=== PATIENT | female | born 1960 | race African-American/Black ===

== ENCOUNTER 2017-11-02 00:32 | Inpatient (IN) | payer MEDICAID, SELFPAY ==
[~2017-11-02] VITALS: Ht 160 cm; Wt 120.7 kg
[2017-11-02] VITALS (7 sets, daily range): BP systolic 123–184; BP diastolic 70–87
[~2017-11-02 00:32] MED LIST: BABY ASPIRIN81 M1 ORAL; BENAZEPRIL HCL10 MG ORAL; IBUPROFEN600 MG ORAL; NORCO 5-325 TA1 EACH PO; PRILOSEC20 MG ORAL
--- NOTE | 2017-11-02 00:40 | Emergency Room Report ---
History of Present Illness General Chief Complaint: To Be Triaged Source: Patient Present Illness HPI This is a 57-year-old female with history hypertension diabetes. She presents with chief complaint of chest pain. Onset around 2 PM, 10 hours ago. Pain to her neck and going to her arm. Now the chest. Going to her back also. Pain is 7 out of 10. Nothing made it better. Nothing made it worse. Denies any trauma. No shortness of breath. No diaphoresis. No exertional component. Pain has been constant. Allergies: Coded Allergies: No Known Allergies (Unverified , 06/10/12) Patient History Past Medical History: see triage record, old chart reviewed, DM, HTN Past Surgical History: other Pertinent Family History: [place] Social History: Denies: smoking Now: No Immunizations: other Reviewed Nursing Documentation: PMH: Agreed; PSxH: Agreed Nursing Documentation-PMH Hx Hypertension: Yes Review of Systems Eye: Denies: eye pain, blurred vision ENT: Denies: ear pain, nose congestion, throat swelling Respiratory: Denies: cough, shortness of breath Cardiovascular: Reports: chest pain; Denies: palpitations Gastrointestinal: Denies: abdominal pain, diarrhea, nausea, vomiting Musculoskeletal: Denies: back pain, joint pain Skin: Denies: rash Neurological: Denies: headache, numbness Endocrine: Denies: increased thirst, increased urine Hematologic/Lymphatic: Denies: easy bruising All Other Systems: negative except mentioned in HPI Physical Exam Sp02 EP Interpretation: reviewed, normal General Appearance: well appearing, no apparent distress, alert, obese Head: normocephalic, atraumatic Eyes: bilateral eye PERRL, bilateral eye EOMI ENT: hearing grossly normal, normal pharynx Neck: full range of motion, supple, no meningismus Respiratory: chest non-tender, lungs clear, normal breath sounds Cardiovascular #1: regular rate, rhythm, no murmur Gastrointestinal: normal bowel sounds, non tender, no mass, no organomegaly, no bruit, non-distended Musculoskeletal: back normal, gait/station normal, normal range of motion Psychiatric: mood/affect normal Skin: warm/dry Medical Decision Making Diagnostic Impression: Primary Impression: ACS (acute coronary syndrome) Additional Impression: Hypertension Qualified Codes: I10 - Essential (primary) hypertension ER Course Patient presents with chest pain. She has multiple risk factor with her obesity , he get, family history, diabetes, and high blood pressure. Pain resolved with nitroglycerin. We will admit versus transfer based on insurance. No evidence of ST elevation AK. No evidence of PE, dissection, pneumonia to name a few. I contacted Dr. Morrow for admission. Lab Results Impression labs are normal EKG Diagnostic Results Rate: normal Rhythm: NSR ST Segments: no acute changes ASA given to the pt in ED: Yes Rhythm Strip Diag. Results Rhythm Strip Time: 01:27 EP Interpretation: yes Rate: 65 Rhythm: NSR, no PVC's, no ectopy Chest X-Ray Diagnostic Results Chest X-Ray Diagnostic Results : Chest X-Ray Ordered: Yes # of Views/Limited/Complete: 1 View Indication: Chest Pain EP Interpretation: Yes Interpretation: no consolidation, no effusion, no pneumothorax, no acute cardiopulmonary disease Impression: No acute disease Electronically Signed by: Tommy Shane MD Status: improved Disposition: ADMITTED INPATIENT Condition: Serious TOMMY SHANE M.D. Nov 02, 2017 00:40
[2017-11-02] MEDS ORDERED: Nitroglycerin Subl 0.4mg tab SL PRN ×2 (00:45→07:45)
[2017-11-02 01:13] LABS: BASOPHILS % (AUTO) 1.4 % (0.0-2.0); EOSINOPHILS % (AUTO) 2.8 % (0.0-3.0); HEMATOCRIT 41.3 % (37.0-47.0); HEMOGLOBIN 13.1 G/DL (12.0-16.0); LYMPHOCYTES % (AUTO) 40.7 % (20.0-45.0); MEAN CORPUSCULAR VOLUME 81 FL (80-99); MONOCYTES % (AUTO) 12.5 % (1.0-10.0); NEUTROPHILS % (AUTO) 42.6 % (45.0-75.0); PLATELET COUNT 298 K/UL (150-450); RED BLOOD COUNT 5.07 M/UL (4.20-5.40); WHITE BLOOD COUNT 6.5 K/UL (4.8-10.8)
[2017-11-02 01:21] LABS: ANION GAP 8 mmol/L (5-15); BLOOD UREA NITROGEN 20 mg/dL (7-18); CALCIUM 9.3 MG/DL (8.5-10.1); CARBON DIOXIDE 25 MMOL/L (21-32); CHLORIDE 106 MMOL/L (98-107); CREATININE 0.9 MG/DL (0.55-1.30); POTASSIUM 3.9 MMOL/L (3.5-5.1); SODIUM 139 MMOL/L (136-145)
[2017-11-02 01:36] LABS: ALANINE AMINOTRANSFERASE 26 U/L (12-78); ALBUMIN 3.4 G/DL (3.4-5.0); ALBUMIN/GLOBULIN RATIO 0.8 (1.0-2.7); ALKALINE PHOSPHATASE 117 U/L (46-116); ASPARTATE AMINO TRANSFERASE 17 U/L (15-37); BILIRUBIN,TOTAL 0.3 MG/DL (0.2-1.0); CKMB 1.2 NG/ML (0.0-3.6); CREATINE KINASE 153 U/L (26-308)
[2017-11-02] MEDS ORDERED: METFORMIN HCL500 M1 ORAL (01:47)
[2017-11-02] MEDS ORDERED: COZAAR50 MG ORAL (01:47)
--- NOTE | 2017-11-02 02:13 | Diagnostic Imaging Report ---
EXAM: XR Chest, 1 View CLINICAL HISTORY: CP TECHNIQUE: Frontal view of the chest. COMPARISON: 06/10/12 FINDINGS: Lungs: Low lung volumes accentuate pulmonary lung markings and cardiovascular silhouette. Slight overall increased lung markings and central vasculature which may reflect mild congestion. Lung bases obscured by underpenetrated technique No gross dense consolidation. Pleural space: No pneumothorax. Heart: Cardiovascular silhouette, likely mildly enlarged and accentuated by low lung volumes. Mediastinum: Unremarkable. Bones/joints: Unremarkable. IMPRESSION: Suspect mild vascular congestion. Low lung volumes limit evaluation. Mild cardiomegaly
[2017-11-02] MEDS: NovoLOG Insulin Flexpen SUBQ SCH ×4 (06:30→21:00)
[2017-11-02] MEDS: metFORMIN 500mg tab ORAL SCH ×2 (08:29→17:01)
[2017-11-02] MEDS: Aspirin Baby 81mg ORAL SCH (08:30)
[2017-11-02] MEDS: Losartan 50mg tab ORAL SCH (08:30)
[2017-11-02 09:37] LABS: ALANINE AMINOTRANSFERASE 25 U/L (12-78); ALBUMIN 3.3 G/DL (3.4-5.0); ALBUMIN/GLOBULIN RATIO 0.7 (1.0-2.7); ALKALINE PHOSPHATASE 105 U/L (46-116); ANION GAP 8 mmol/L (5-15); ASPARTATE AMINO TRANSFERASE 17 U/L (15-37); BILIRUBIN,TOTAL 0.4 MG/DL (0.2-1.0); BLOOD UREA NITROGEN 18 mg/dL (7-18); CALCIUM 9.2 MG/DL (8.5-10.1); CARBON DIOXIDE 28 MMOL/L (21-32); CHLORIDE 105 MMOL/L (98-107); CHOLESTEROL 196 MG/DL (< 200); CREATININE 0.9 MG/DL (0.55-1.30); HDL CHOLESTEROL 77 MG/DL (40-60); POTASSIUM 3.4 MMOL/L (3.5-5.1); SODIUM 140 MMOL/L (136-145); TRIGLYCERIDES 61 MG/DL (30-150)
[2017-11-02] MEDS ORDERED: Lexiscan 0.4mg/5ml syringe IV PRN (16:00)
--- NOTE | 2017-11-02 19:15 | History and Physical Report ---
DATE OF ADMISSION: 11/02/2017 REASON FOR ADMISSION: Chest pain with risk factors for premature coronary disease. HISTORY OF PRESENT ILLNESS: This is a 57-year-old female with multiple risk factors for premature coronary atherosclerosis. She presented to the emergency room with chest pressure beginning around 2 p.m., unprovoked, and radiating to her neck and arm as well as her back. The patient denies any similar symptoms. It occurred at rest. The pain has been nearly constant. The patient's coronary risk factors include diabetes, hypertension, obesity, and family history. PAST MEDICAL HISTORY: Hypertension, type 2 diabetes mellitus. FAMILY HISTORY: Notable for myocardial infarctions in her mother and father. SOCIAL HISTORY: Negative for smoking, alcohol, or substance abuse. MEDICATIONS: Reviewed and reconciled. REVIEW OF SYSTEMS: Otherwise unremarkable. PHYSICAL EXAMINATION: VITAL SIGNS: Blood pressure 137/87, pulse 78, respiratory rate 18, and afebrile. GENERAL: Moderately obese. HEENT: Conjunctivae pink. Oropharynx clear. NECK: Supple. No jugular venous distention. No bruits. LUNGS: Clear. CHEST: Chest wall without deformity or tenderness. CARDIAC: Regular rhythm and rate. Normal S1, S2 with no murmur. ABDOMEN: Soft and obese. EXTREMITIES: No edema. LABORATORY DATA: White count 6.5, hemoglobin 13.1. Sodium 139, potassium 3.9, bicarbonate 25, BUN 20, creatinine 0.9. Troponin is negative. IMPRESSION: 1. Acute coronary syndrome. 2. Hypertensive heart disease. 3. Type 2 diabetes mellitus. 4. Obesity. 5. Prerenal azotemia. PLAN: 1. Cardiac monitoring. 2. Antiplatelet therapy with aspirin. 3. Serial troponin levels. 4. DVT prophylaxis. 5. Continue baseline diabetic regimen. 6. Titrate antihypertensives. 7. Consider beta-blockade for persisting chest pain especially if troponins increase. 8. In view of risk factors and presentation with symptoms suggestive of angina, I would recommend a noninvasive assessment of coronary flow reserve prior to discharge. Zelalem Morrow M.D. FROILAN Cunningham JOB#: [id number] CC:
[2017-11-02] MEDS: Zolpidem 5mg tab ORAL PRN (22:01)
[2017-11-03] VITALS: BP 136/78
[2017-11-03 04:00] VITALS: BP 119/74
[2017-11-03] MEDS: NovoLOG Insulin Flexpen SUBQ SCH ×4 (06:07→21:00)
[2017-11-03 07:57] VITALS: BP 140/73
[2017-11-03] MEDS: metFORMIN 500mg tab ORAL SCH ×2 (08:08→17:34)
[2017-11-03] MEDS: Losartan 50mg tab ORAL SCH (08:08)
[2017-11-03] MEDS: Aspirin Baby 81mg ORAL SCH (08:08)
[2017-11-03 08:20] LABS: ANION GAP 7 mmol/L (5-15); BLOOD UREA NITROGEN 15 mg/dL (7-18); CARBON DIOXIDE 28 MMOL/L (21-32); CHLORIDE 107 MMOL/L (98-107); CREATININE 0.8 MG/DL (0.55-1.30); POTASSIUM 4.2 MMOL/L (3.5-5.1); SODIUM 142 MMOL/L (136-145)
[2017-11-03 12:00] VITALS: BP 150/77
--- NOTE | 2017-11-03 15:53 | Cardiology Report ---
APPROVED REPORT EKG Measurement Heart [id number] CT [id number] Normal sinus rhythm Normal ECG
[2017-11-03 16:00] VITALS: BP 123/74
[2017-11-03 20:00] VITALS: BP 142/90
[2017-11-03] MEDS: Zolpidem 5mg tab ORAL PRN (20:11)
--- NOTE | 2017-11-03 22:15 | Progress Note ---
DATE: 11/03/2017 INTERNAL MEDICINE PROGRESS NOTE SUBJECTIVE: The patient without genuine condition. No chest pain. No shortness of breath. OBJECTIVE: VITAL SIGNS: Blood pressure 123/74 to 150/77, heart rate 71, and respiratory rate 18. GENERAL: She is afebrile. Monitored rhythm, sinus. LUNGS: Clear. CARDIAC: Regular. No new murmur. ABDOMEN: Soft. EXTREMITIES: No edema. IMPRESSION: 1. Possible acute coronary syndrome. 2. Type 2 diabetes mellitus. 3. Hypertensive heart disease. 4. Obesity. PLAN: 1. Continue current regimen. 2. Cardiac monitoring. 3. Anti-platelet therapy and antihypertensives with glucose monitoring. 4. Awaiting noninvasive assessment of coronary flow reserve to risk stratify prior to discharge. Zelalem Morrow M.D. DRFabricio CASTILLO JOB#: [id number] CC:
[2017-11-04] VITALS: BP 131/67
[2017-11-04 04:00] VITALS: BP 120/62
[2017-11-04] MEDS: NovoLOG Insulin Flexpen SUBQ SCH ×3 (06:30→16:30)
[2017-11-04 08:00] VITALS: BP 147/75
[2017-11-04] MEDS: Losartan 50mg tab ORAL SCH (08:39)
[2017-11-04] MEDS: metFORMIN 500mg tab ORAL SCH (08:39)
[2017-11-04] MEDS: Aspirin Baby 81mg ORAL SCH (08:41)
--- NOTE | 2017-11-04 11:14 | Cardiology Report ---
APPROVED REPORT EXAM: Two-dimensional and M-mode echocardiogram with Doppler and color Doppler. INDICATION Chest Pain M-Mode DIMENSIONS IVSd1.2 (0.7-1.1cm)Left Atrium (MM)3.9 (1.6-4.0cm) LVDd4.5 (3.5-5.6cm)Aortic Root2.9 (2.0-3.7cm) PWd1.3 (0.7-1.1cm)Aortic Cusp Exc.1.7 (1.5-2.0cm) LVDs2.8 (2.5-4.0cm) PWs2.2 cm Technically difficult study due to poor acoustic windows. Study quality precludes accurate assessment of regional wall motion. Normal left ventricular chamber size, systolic function and wall motion. Left ventricular ejection fraction estimated to be 60 %. Mild left ventricular hypertrophy. Anterior Echo-free space, may be due to pericardial fat or effusion. All other cardiac chamber sizes are within normal limits. Focal aortic valve sclerosis with adequate cusp excursion. Mildly thickened mitral valve leaflets with normal excursion. Mild mitral annulus and aortic root calcification. Normal pulmonic valve structure. Normal tricuspid valve structure. IVC measures at 1.9 cm with physiological collapse. A color flow and spectral Doppler study was performed and revealed: No aortic insufficiency. Peak aortic valve gradient of 16 mmHg and a mean of 8 mmHg. Mild mitral regurgitation. Mitral inflow velocities indicates possible pseudo normalization pattern implying significant left ventricular diastolic dysfunction (Grade II). Trace tricuspid regurgitation. Tricuspid systolic velocities suggests peak right ventricular systolic pressure of 31 mmHg. Trace pulmonic regurgitation present.
[2017-11-04 12:00] VITALS: BP 123/78
[2017-11-04 16:00] VITALS: BP 142/72
--- NOTE | 2017-11-04 16:01 | Diagnostic Imaging Report ---
Technique: See cardiology report for details of LexiScan stress testing. During LexiScan infusion, IV administration 31.1 mCi 99 M technetium Myoview for stress portion. SPECT and planar images obtained. SPECT images gated to 8 phases of the cardiac cycle were also obtained, and reformatted into cine images for evaluation of ejection fraction. Resting images obtained using IV administration 10.5 mCi 99 M technetium Myoview. Comparison:none Findings: Baseline heart rate of 61 beats per minutes; end infusion heart rate 80 bpm. Baseline blood pressure of 134/78; end infusion blood pressure of 125/66. Infusion duration was [address]-T changes were documented. The clinical response to pharmacologic stress was nonischemic. The electrocardiographic response to pharmacologic stress was nonischemic. Perfusion images demonstrate some mild soft tissue/breast attenuation artifact. There is no definite focal fixed or reversible defect. Wall motion appears within normal limits. Ejection fraction estimated at 73 %. IMPRESSION: No fixed or reversible perfusion defects identified. Ejection fraction of approximately 73 %.
--- NOTE | 2017-11-05 15:32 | Discharge Summary ---
Discharge Summary Discharge Summary _ DATE OF ADMISSION: 11/02/2017 DATE OF DISCHARGE: 11/04/2017 REASON FOR ADMISSION: 57 years old female with past medical history significant for hypertension and diabetes, presented with chief complaint of chest pain. Chest pain described as radiating to neck and back. Pain reported as 7 out of 10 on a scale 1-10 . Onset about 10 hours ago. No shortness of breath . No trauma . No diaphoresis . No exertional component. Upon evaluation blood pressure 184/86,pulse oximetry was stable on room air. Laboratory workup revealed no leukocytosis ,stable hemoglobin and hematocrit. BUN 20 creatinine 0.9 . Troponin negative. EKG revealed normal sinus rhythm, no acute ischemic changes . Chest x-ray revealed no acute cardiopulmonary pathology . Patient admitted with diagnoses of chest pain, rule out acute coronary syndrome , hypertensive heart disease, prerenal azotemia. HOSPITAL COURSE: Patient admitted to telemetry floor. Telemetry was negative and showed sinus rhythm, no acute ischemic changes . Serial troponin were negative. Echocardiogram revealed ejection fraction of 60% and no wall motion abnormality. Grade 2 diastolic dysfunction. Right ventricular systolic pressure of 31. Pro BNP 31. Patient was on antiplatelet therapy with aspirin. Blood pressure was managed with angiotensin receptor demar. Blood pressure stabilized. Pain management was addressed as needed. Patient subsequently undergone myocardial perfusion scan which revealed no fixed or reversible perfusion defects. Ejection fraction of approximately 73%. Lipid panel revealed elevated LDL 108 . Patient was counseled on low-fat low-cholesterol cardiac diet. Blood sugar was managed with metformin. Hemoglobin A1c- 6.4. DVT prophylaxis provided Patient was ruled out for acute coronary syndrome . renal parameters electrolytes were closely monitored. Nephrotoxins were avoided. Oral hydration encouraged. Prior to discharge BU and down to 15 creatinine 0.8. Patient counseled on compliance with medication regimen . Patient was stable for discharge. FINAL DIAGNOSES: Chest pain Hypertensive heart disease Prerenal azotemia Type 2 diabetes mellitus Obesity DISCHARGE MEDICATIONS: See Medication Reconciliation list. DISCHARGE INSTRUCTIONS: Patient was discharged home. Follow up with primary care provider in one week. Recommended stress test as outpatient. Patient was counseled on return to ED precautions I have been assigned to dictate discharge summary for this account. I was not involved in the patient's management. Catherine Paiz NP Nov 05, 2017 15:32
== END 2017-11-04 18:15 | disposition home or self-care (01) | DRG 203 ==
LOC: EMR 01:06 → 2E 01:40 → EDBEDREQ 02:08
DX: R07.9 Chest pain, unspecified (principal); I11.9 Hypertensive heart disease without heart failure; Z68.42 Body mass index [BMI] 45.0-49.9, adult; E11.9 Type 2 diabetes mellitus without complications; E66.9 Obesity, unspecified
CPT/HCPCS: 36415; 71045; 78452; 80048; 80053; 80061; 82550; 82553; 82962; 83036; 83735; 83880; 84484; 85025; 93005; 93017; 93306; 99285; J1815; J2785; J8499